=== PATIENT | male | born 1935 | race Caucasian/White ===

== ENCOUNTER 2017-09-26 09:52 | Day surgery (SDC) | payer OTHER ==
--- NOTE | 2017-09-24 14:38 | EKG ---
Test Date: 2017-09-24 Test Time: 14:20:48 Tricot Knitter: AIDE MEASUREMENT RESULTS: Intervals: Rate: 58 PA: 166 QRSD: 90 QT: 432 QTc: 424 [place]: P: 38 PA: 166 QRS: 21 T: 39 INTERPRETIVE STATEMENTS: Sinus bradycardia Otherwise normal ECG Compared to ECG 08/27/2015 21:34:07 Sinus rhythm no longer present Electronically Signed On 09-24-17 14:38:29 CDT by Axel Edmonds
--- OUTSIDE RECORDS SUMMARY | 2017-09-26 09:58 | XMS REPORT ---
:1935 Author Organization eClinicalWorks Care Team Providers Name Role Phone Dustin Anthony Provider Role Unavailable Allergies No Known Allergies Problems Problem Type Condition Code Onset Dates Condition Status Problem Insomnia G47.00 Active Problem Hypertension I10 Active Problem GERD (gastroesophageal reflux K21.9 Active disease) Problem Chronic sinusitis, unspecified J32.9 Active location Assessment Chronic sinusitis, unspecified J32.9 Active location Problem Osteopenia of neck of left femur M85.852 Active Problem Chronic tension-type headache, not G44.229 Active intractable Problem Idiopathic peripheral neuropathy G60.9 Active Problem Cholelithiasis and acute K80.00 Active cholecystitis without obstruction Problem 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 Active Problem Diverticulosis large intestine w/o K57.30 Active perforation or abscess w/o bleeding Assessment Hypertension I10 Active Assessment Insomnia G47.00 Active Assessment Osteopenia of neck of left femur M85.852 Active Assessment Allergic rhinitis, seasonal J30.2 Active Problem Lumbar disc herniation M51.26 Active Problem Abdominal aortic aneurysm I71.4 Active Problem Allergic rhinitis, seasonal J30.2 Active Problem 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 Problem Hyperlipidemia, mixed E78.2 Active Problem 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 Medications Medication Code Code Instructions Start End Status Dosage System Date Date Omeprazole [facility] 76745950072 20 MG Orally Active 1 capsule Once a day Atenolol [facility] 37373378538 25 MG Orally Active 1 tablet Once a day Ambien [facility] 18521586867 10 MG Orally Active 1 tablet Once a day at bedtime as needed Caltrate 600+D [facility] 65759679620 600-800 MG-UNIT Active 1 tablet Orally Once a with a day meal Aspir-81 [facility] 10415863967 81 MG Orally Active 1 tablet Once a day Flonase [facility] 83213413963 50 MCG/ACT Active 1 spray in Nasally Once a each day nostril Montelukast [facility] 79475632738 10 MG Orally Keli Active 1 tablet Sodium Once a day 2017 in the evening Losartan [facility] 48442590089 50 MG Orally Active 1 tablet Potassium Once a day Results No Known Results Summary Purpose eClinicalWorks Submission
--- OUTSIDE RECORDS SUMMARY | 2017-09-26 09:58 | XMS REPORT ---
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 Active Problem Diverticulosis large intestine w/o K57.30 Active perforation or abscess w/o bleeding Problem Chronic tension-type headache, not G44.229 Active intractable Problem Osteopenia of neck of left femur M85.852 Active Problem Hypertension I10 Active Problem Idiopathic peripheral neuropathy G60.9 Active Problem Cholelithiasis and acute K80.00 Active cholecystitis without obstruction Assessment Dizziness R42 Active Assessment Chronic tension-type headache, not G44.229 Active intractable Assessment Allergic rhinitis, seasonal J30.2 Active Problem Hyperlipidemia, mixed E78.2 Active Problem Lumbar disc herniation M51.26 Active Assessment Sinus headache R51 Active Problem Abdominal aortic aneurysm I71.4 Active Problem Allergic rhinitis, seasonal J30.2 Active Problem 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 Medications Medication Code Code Instructions Start End Status Dosage System Date Date Flonase [facility] 93519414712 50 MCG/ACT Active 1 spray in Nasally Once a each day nostril Aspir-81 [facility] 38679034960 81 MG Orally Active 1 tablet Once a day Losartan [facility] 65395022855 50 MG Orally Active 1 tablet Potassium Once a day Ambien [facility] 38005467549 10 MG Orally Active 1 tablet Once a day at bedtime as needed Atenolol [facility] 60095861383 25 MG Orally Active 1 tablet Once a day Montelukast [facility] 56366500716 10 MG Orally Keli Active 1 tablet Sodium Once a day 2017 in the evening Omeprazole [facility] 74815623586 20 MG Orally Active 1 capsule Once a day Caltrate 600+D [facility] 23631934615 600-800 MG-UNIT Active 1 tablet Orally Once a with a day meal Results No Known Results Summary Purpose eClinicalWorks Submission
[2017-09-26] MEDS ORDERED: PROPOFOL 200 MG/20 ML VIAL IV ONE (10:06)
[2017-09-26] MEDS ORDERED: GLYCOPYRROLATE 0.2 MG/ML SYR ONE (10:06)
[2017-09-26] MEDS ORDERED: LIDOCAINE 2% MPF 5 ML VIAL ONE (10:07)
[2017-09-26] MEDS ORDERED: Ringers Lactate 1,000 ML IV ONE ×2 (10:08→17:30)
[2017-09-26] MEDS ORDERED: FENTANYL CITR 250 MCG/5 ML ONE (10:08)
[2017-09-26] MEDS ORDERED: ROCURONIUM 50 MG/5 ML VIAL IV ONE (10:09)
[2017-09-26] MEDS ORDERED: ONDANSETRON HCL 40 MG/20 ML VIAL ONE (10:09)
[2017-09-26] MEDS: OXYMETAZOLINE HCL 0.05% 30ML NAS ONE ×3 (10:09→10:20)
[2017-09-26] MEDS ORDERED: NEOSTIGMINE 1 MG/ML -5 ML SYRINGE ONE (10:09)
[2017-09-26] MEDS ORDERED: NA CHLORIDE 0.9% 250 ML ONE (16:22)
[2017-09-26] MEDS ORDERED: LIDOCAINE 1% W/EPI 1:100,000 MDV 50 ML VIAL ONE (16:23)
[2017-09-26] MEDS ORDERED: OXYMETAZOLINE HCL 0.05% 30ML NAS ONE (16:30)
[2017-09-26] MEDS ORDERED: DEXAMETHASONE 10 MG/ML VIAL ONE (17:02)
[2017-09-26] MEDS ORDERED: KETOROLAC 30 MG/ML INJ ONE (17:03)
--- NOTE | 2017-09-26 17:04 | P.BOP ---
Preoperative diagnosis: chronic right maxillary sinusitis, severe headache Postoperative diagnosis: same Primary procedure: NE with R max antrostomy Livestock Farmers: NONE,NONE Estimated blood loss: <10ml Specimen: none Findings: mild purulence from accessory os, inflammed mucosa Anesthesia: General Complications: None Implants: none Fluids & blood products: crystalloid 200ml Transferred to: Recovery Room Condition: Good
[2017-09-26] MEDS ORDERED: NALOXONE 0.4 MG/ML VIAL ONE (17:11)
[2017-09-26] MEDS: MORPHINE 4 MG/ML SYR ONE ×2 (17:30→17:37)
[2017-09-26] MEDS ORDERED: MORPHINE 4 MG/ML SYR ONE (17:55)
[2017-09-26 18:21] VITALS: BP 167/86; TEMP 97.2; O2SAT 100
--- NOTE | 2017-09-27 03:29 | OP ---
Surgeon: Rekha Azevedo MD Preoperative Diagnosis: Chronic maxillary sinusitis, right. Postoperative Diagnosis: Chronic maxillary sinusitis, right. Procedure: Right nasal endoscopy with maxillary antrostomy. Indication For Procedure: Mr. Lackey is an 82-year-old who presented with severe headache. He was heriberto ated with multiple courses of antibiotics without improvement, and a CT scan demonstrated partial opa cification of the right maxillary sinus with the remaining paranasal sinuses within normal limits. T he risks, benefits, and alternatives to this procedure were discussed with the patient who agreed to proceed. Description Of Procedure: The patient was brought to the operating room. He was placed under genera l anesthesia via oral endotracheal tube. Scissors were used to trim the nasal hairs on the right preston e, and the nasal cavity was packed with Afrin-soaked pledgets. After time for effect, these were rem benji, and a 0-degree endoscope was used to perform a nasal endoscopy. The middle turbinate was gentl y medialized using a [place], and an Afrin-soaked pledget was packed into the middle meatus. After marya e for effect, this was removed, and the uncinate process was well visualized. There was a small acce ssory os emanating some thick white mucus. A backbiter was used to perform an uncinectomy, and a 90- degree Blakesley was used to enlarge the os and connect the natural os with the secondary os, creatin g a moderate-sized antrostomy. The sinus cavity was suctioned, and the 30- and 70-degree scopes were used to better visualize the sinus cavity. A 20-cc saline syringe was used to forcefully flush the maxillary sinus cavity. After several flushes, the cavity appeared empty without residual secretions or debris. The lining of the maxillary sinus was significantly edematous consistent with the patien t's clinical and radiographic history. Afrin-soaked pledgets were packed into the middle meatus for several minutes. After removal, there was no significant bleeding and the procedure was concluded. The patient was returned to care of Anesthesia for awakening and extubation in the operating room. Disposition: The patient will be discharged home later today in the care of his family and with [facility] standard post-sinus surgery instructions. ALFREDO/OPAL Voice ID: [id number] Report ID: [id number]
== END 2017-09-26 18:15 | disposition home or self-care (01) ==
LOC: OR 09:52
PROVIDERS: ATTEND Otolaryngology
PROC: 09DQ4ZZ Extraction of Right Maxillary Sinus, Percutaneous Endoscopic Approach (ICD-10-PCS; 2017-09-26)
PROC: 099Q8ZZ Drainage of Right Maxillary Sinus, Via Natural or Artificial Opening Endoscopic (ICD-10-PCS; principal; 2017-09-26 12:00)
DX: J32.0 Chronic maxillary sinusitis (principal); J31.0 Chronic rhinitis; R51 Headache; Z87.891 Personal history of nicotine dependence
CPT/HCPCS: 31267; 88305; 88311; 93005; J1100; J2310; J2405; J2710

== ENCOUNTER 2018-02-10 08:45 | Day surgery (SDC) | payer OTHER ==
[2018-02-09 15:17] LABS: Potassium 4.4 mmol/L (3.5-5.1)
--- NOTE | 2018-02-09 15:28 | RAD REPORT ---
EXAM DESCRIPTION: RAD - Chest Pa And Lat (2 Views) - 02/09/2018 3:16 pm CLINICAL HISTORY: surgery Chest pain. COMPARISON: Chest Single View dated 08/27/2015; CHEST SINGLE VIEW dated 05/20/2014; CHEST SINGLE VIEW dated 10/19/2012 FINDINGS: The lungs are mildly emphysematous but clear. The heart is upper limit normal size. No dis placed fractures. Tortuous thoracic aorta. IMPRESSION: Mild COPD.
[2018-02-09 15:55] LABS: Absolute Lymphocytes (CBC) 0.9 K/uL (0.7-4.9); Absolute Monocytes 0.2 K/uL (0.1-1.3); Absolute Neutrophil 5.3 K/uL (1.8-8.0); Basophils % 0.2 % (0-1.3); Eosinophils % 1.1 % (0-4.4); Hematocrit 38.3 % (39.6-49.0); Lymphocytes % 14.5 % (15.3-44.8); MCH 30.6 pg (27.0-35.0); MCV 89.9 fL (80-100); MPV 8.3 fL (7.6-11.3); Monocytes % 2.4 % (3.3-12.3); RBC Red Blood Cell Count 4.26 M/uL (4.33-5.43)
--- NOTE | 2018-02-10 06:30 | EKG ---
Test Date: 2018-02-09 Test Time: 14:50:51 Line Construction Engineer: JUSTIN MEASUREMENT RESULTS: Intervals: Rate: 69 MD: 170 QRSD: 88 QT: 390 QTc: 417 [place]: P: 42 MD: 170 QRS: 18 T: 28 INTERPRETIVE STATEMENTS: Normal sinus rhythm Normal ECG Compared to ECG 09/24/2017 14:20:48 Sinus bradycardia no longer present Electronically Signed On 02-10-18 06:29:29 BREAK OFF WORKER by Axel Edmonds
--- OUTSIDE RECORDS SUMMARY | 2018-02-10 08:48 | XMS REPORT ---
:1935 Author Organization eClinicalWorks Care Team Providers Name Role Phone Raj Dustin Provider Role Unavailable Allergies No Known Allergies Problems Problem Type Condition Code Onset Dates Condition Status Problem Insomnia G47.00 Active Problem Hypertension I10 Active Problem GERD (gastroesophageal reflux K21.9 Active disease) Problem Chronic sinusitis, unspecified J32.9 Active location Problem Osteopenia of neck of left femur M85.852 Active Problem Chronic tension-type headache, not G44.229 Active intractable Problem Idiopathic peripheral neuropathy G60.9 Active Problem Cholelithiasis and acute K80.00 Active cholecystitis without obstruction Problem 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
--- OUTSIDE RECORDS SUMMARY | 2018-02-10 08:48 | XMS REPORT ---
[...] End Status Dosage System Date Date Omeprazole [facility] 51369758691 20 MG Orally Active 1 capsule Once a day Atenolol [facility] 46726846818 25 MG Orally Active 1 tablet Once a day Ambien [facility] 02884926922 10 MG Orally Active 1 tablet Once a day at bedtime as needed Caltrate 600+D [facility] 52125841006 600-800 MG-UNIT Active 1 tablet Orally Once a with a day meal Aspir-[address] [facility] 22762743724 81 MG Orally Active 1 tablet Once a day Flonase [facility] 72565533659 50 MCG/ACT Active 1 spray in Nasally Once a each day nostril Montelukast [facility] 84024666334 10 MG Orally Keli Active 1 tablet Sodium Once a day 2017 in the evening Losartan [facility] 71741498500 50 MG Orally Active 1 tablet Potassium Once a day Results No Known Results Summary Purpose eClinicalWorks Submission
--- OUTSIDE RECORDS SUMMARY | 2018-02-10 08:48 | XMS REPORT ---
:1935 Author Organization eClinicalWorks Care Team Providers Name Role Phone Dustin Anthony Provider Role Unavailable Allergies No Known Allergies Problems Problem Type Condition Code Onset Dates Condition Status Problem Insomnia G47.00 Active Problem Hypertension I10 Active Problem GERD (gastroesophageal reflux K21.9 Active disease) Problem Chronic sinusitis, unspecified J32.9 Active location Assessment Osteopenia of neck of left femur M85.852 Active Problem Osteopenia of neck of left femur M85.852 Active Assessment Chronic sinusitis, unspecified J32.9 Active location Problem Chronic tension-type headache, not G44.229 Active intractable Problem Idiopathic peripheral neuropathy G60.9 Active Problem Cholelithiasis and acute K80.00 Active cholecystitis without obstruction Problem 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 Active Problem Diverticulosis large intestine w/o K57.30 Active perforation or abscess w/o bleeding Assessment Insomnia G47.00 Active Assessment Allergic rhinitis, seasonal J30.2 Active Assessment Hypertension I10 Active Problem Lumbar disc herniation M51.26 Active Problem Abdominal aortic aneurysm I71.4 Active Problem Allergic rhinitis, seasonal J30.2 Active Problem 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 10232122637 25 MG Orally Active 1 tablet Once a day Omeprazole [facility] 97457072046 20 MG Orally Active 1 capsule Once a day Flonase [facility] 10419677354 50 MCG/ACT Active 1 spray in Nasally Once a each day nostril Caltrate 600+D [facility] 42942804324 600-800 MG-UNIT Active 1 tablet Orally Once a with a day meal Losartan [facility] 73679349979 50 MG Orally Active 1 tablet Potassium Once a day Montelukast [facility] 55883586022 10 MG Orally Keli Active 1 tablet Sodium Once a day 2017 in the evening Ambien [facility] 73562109631 10 MG Orally Active 1 tablet Once a day at bedtime as needed [facility]-[address] [facility] 65436262318 81 MG Orally Active 1 tablet Once a day Results No Known Results Summary Purpose eClinicalWorks Submission
--- OUTSIDE RECORDS SUMMARY | 2018-02-10 08:48 | XMS REPORT ---
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 Problem GERD (gastroesophageal reflux [...] End Status Dosage System Date Date Flonase [facility] 81599624012 50 MCG/ACT Active 1 spray in Nasally Once a each day nostril Aspir-81 [facility] 15244447847 81 MG Orally Active 1 tablet Once a day Losartan [facility] 90445079994 50 MG Orally Active 1 tablet Potassium Once a day Ambien [facility] 38750529233 10 MG Orally Active 1 tablet Once a day at bedtime as needed Atenolol [facility] 89457056172 25 MG Orally Active 1 tablet Once a day Montelukast [facility] 90331859572 10 MG Orally Keli Active 1 tablet Sodium Once a day 2017 in the evening Omeprazole [facility] 57458974278 20 MG Orally Active 1 capsule Once a day Caltrate 600+D [facility] 12136238249 600-800 MG-UNIT Active 1 tablet Orally Once a with a day meal Results No Known Results Summary Purpose eClinicalWorks Submission
[2018-02-10] MEDS ORDERED: Ringers Lactate 1,000 ML IV ONE (09:03)
[2018-02-10] MEDS ORDERED: LIDOCAINE 1% MPF 30 ML VIAL ONE (09:59)
[2018-02-10] MEDS ORDERED: FENTANYL CITR 100 MCG/2 ML ONE (10:22)
[2018-02-10] MEDS ORDERED: PROPOFOL 200 MG/20 ML VIAL IV ONE (10:22)
[2018-02-10] MEDS ORDERED: LIDOCAINE 2% MPF 5 ML VIAL ONE (10:23)
[2018-02-10] MEDS ORDERED: MIDAZOLAM HCL 2 MG/2 ML INJ ONE (10:23)
[2018-02-10] MEDS: CEFAZOLIN/SWI 1gm 1 GM/10 ML SYR ONE ×2 (10:32→10:35)
[2018-02-10] MEDS ORDERED: GLYCOPYRROLATE 0.2 MG/ML SYR ONE (10:49)
[2018-02-10] MEDS ORDERED: EPHEDRINE SULF 50 MG/10 ML SYR ONE (10:59)
[2018-02-10] MEDS ORDERED: KETOROLAC 30 MG/ML INJ ONE (11:05)
[2018-02-10] MEDS ORDERED: Mastisol Adhesive Liq ONE (11:11)
[2018-02-10 11:18] VITALS: O2SAT 100
[2018-02-10 12:03] VITALS: BP 141/87; TEMP 97.2
--- NOTE | 2018-02-10 12:07 | OP ---
Date of Procedure: 02/10/2018 Surgeon: Guillermo Mendoza MD Gas And Oil Servicer: AUDREY Gal[place]. Preoperative Diagnoses: Left vision change. Rule out temporal arteritis, elevated sedimentation rat e and C-reactive protein. Postoperative Diagnoses: Left vision change. Rule out temporal arteritis, elevated sedimentation ra te and C-reactive protein. Procedure: Left temporal artery biopsy, Doppler guided. Estimated Blood Loss: Minimal. Specimen: Left temporal artery. Findings: As above. Anesthesia: General. Complications: None. Disposition: The patient tolerated the procedure in stable condition and taken to Recovery in good g eneral condition. Procedure In Detail: The patient was brought to the OR and placed in the supine position. General a nesthesia was begun. The patient was prepped and draped in the usual sterile fashion. Doppler devic e used to identify the margins of temporal artery. Marcaine 0.5% was infiltrated locally. A 15-blad e was used to make a 4 cm incision above the left ear in the hairline. Subcutaneous tissue divided. The artery identified. Proximal and distal control obtained. Both ends divided. 4-0 silk used to tie up both ends. A 4 cm segment of the temporal artery branch sent to Pathology. Wound irrigated. Bleeding controlled with cautery. Then 4-0 chromic used to approximate the subcutaneous tissue and close the skin. Sterile dressing was applied. The patient was awakened and taken to Recovery in good general condition. /MODL Voice ID: [id number] Report ID: [id number]
--- NOTE | 2018-02-10 12:13 | DS ---
Discharge Note: The patient will go to Day Surgery and home when stable. Disposition: Home. Condition: Stable. Discharge Instructions: Resume home medications and diet. Activity as tolerated. No heavy lifting. Remove outer dressing in 2 days. Shower. Keep wound clean and dry. Keep Steri-Strips on at all t imes. Followup in my office in 2 weeks. Call for appointment. Follow with Dr. Harris in 1 week. SHANNON/OPAL Voice ID: [id number] Report ID: [id number]
== END 2018-02-10 12:35 | disposition home or self-care (01) ==
LOC: OR 08:45
PROVIDERS: ATTEND Surgery
PROC: 03BT0ZX Excision of Left Temporal Artery, Open Approach, Diagnostic (ICD-10-PCS; principal; 2018-02-10 10:00)
DX: H53.9 Unspecified visual disturbance (principal); I70.8 Atherosclerosis of other arteries; R70.0 Elevated erythrocyte sedimentation rate; I10 Essential (primary) hypertension; K21.9 Gastro-esophageal reflux disease without esophagitis; Z82.3 Family history of stroke
CPT/HCPCS: 36415; 37609; 71046; 80048; 85025; 88305; 93005; J0690; J2250; J2704; J3010

== ENCOUNTER 2018-02-13 05:10 | Emergency (ER) | payer OTHER ==
--- OUTSIDE RECORDS SUMMARY | 2018-02-13 05:12 | XMS REPORT ---
[...] End Status Dosage System Date Date Omeprazole [facility] 91573308962 20 MG Orally Active 1 capsule Once a day Atenolol [facility] 93375172140 25 MG Orally Active 1 tablet Once a day Ambien [facility] 45844379053 10 MG Orally Active 1 tablet Once a day at bedtime as needed Caltrate 600+D [facility] 22466384719 600-800 MG-UNIT Active 1 tablet Orally Once a with a day meal Aspir-81 [facility] 04516301419 81 MG Orally Active 1 tablet Once a day Flonase [facility] 07533036618 50 MCG/ACT Active 1 spray in Nasally Once a each day nostril Montelukast [facility] 35109455569 10 MG Orally Keli Active 1 tablet Sodium Once a day 2017 in the evening Losartan [facility] 95277086968 50 MG Orally Active 1 tablet Potassium Once a day Results No Known Results Summary Purpose eClinicalWorks Submission
--- OUTSIDE RECORDS SUMMARY | 2018-02-13 05:12 | XMS REPORT ---
[...] Status Dosage System Date Date Atenolol [facility] 93480115363 25 MG Orally Active 1 tablet Once a day Omeprazole [facility] 95300962528 20 MG Orally Active 1 capsule Once a day Flonase [facility] 92692495490 50 MCG/ACT Active 1 spray in Nasally Once a each day nostril Caltrate 600+D [facility] 37914148528 600-800 MG-UNIT Active 1 tablet Orally Once a with a day meal Losartan [facility] 48401545037 50 MG Orally Active 1 tablet Potassium Once a day Montelukast [facility] 75527640169 10 MG Orally Keli Active 1 tablet Sodium Once a day 2017 in the evening Ambien [facility] 14164501349 10 MG Orally Active 1 tablet Once a day at bedtime as needed [facility]-81 [facility] 76775039750 81 MG Orally Active 1 tablet Once a day Results No Known Results Summary Purpose eClinicalWorks Submission
--- OUTSIDE RECORDS SUMMARY | 2018-02-13 05:12 | XMS REPORT ---
[...] End Status Dosage System Date Date Flonase [facility] 31616705232 50 MCG/ACT Active 1 spray in Nasally Once a each day nostril Aspir-81 [facility] 76347570994 81 MG Orally Active 1 tablet Once a day Losartan [facility] 81348890527 50 MG Orally Active 1 tablet Potassium Once a day Ambien [facility] 44113571764 10 MG Orally Active 1 tablet Once a day at bedtime as needed Atenolol [facility] 91246583793 25 MG Orally Active 1 tablet Once a day Montelukast [facility] 29332825085 10 MG Orally Keli Active 1 tablet Sodium Once a day 2017 in the evening Omeprazole [facility] 31815188167 20 MG Orally Active 1 capsule Once a day Caltrate 600+D [facility] 53753845191 600-800 MG-UNIT Active 1 tablet Orally Once a with a day meal Results No Known Results Summary Purpose eClinicalWorks Submission
[2018-02-13] MEDS ORDERED: ONDANSETRON 4 MG/2 ML VIAL ONE (05:40)
[2018-02-13] MEDS ORDERED: FENTANYL CITR 100 MCG/2 ML ONE ×2 (05:40→06:31)
[2018-02-13 05:53] LABS: Absolute Lymphocytes (CBC) 1.2 K/uL (0.7-4.9); Absolute Monocytes 0.9 K/uL (0.1-1.3); Basophils % 0.3 % (0-1.3); Hematocrit 42.7 % (39.6-49.0); Lymphocytes % 11.2 % (15.3-44.8); MCH 30.8 pg (27.0-35.0); MCV 90.3 fL (80-100); MPV 8.3 fL (7.6-11.3); Monocytes % 7.8 % (3.3-12.3); RBC Red Blood Cell Count 4.73 M/uL (4.33-5.43)
[2018-02-13 06:10] LABS: Bilirubin Direct 0.2 mg/dL (0-0.2); Bilirubin Total 0.4 mg/dL (0.2-1.0); Potassium 3.8 mmol/L (3.5-5.1)
[2018-02-13 06:52] LABS: Platelet Estimate ADEQ; Platelets, Giant FEW; Urine White Blood Cell Casts OK
[2018-02-13 06:53] LABS: Blood Morphology Comment NOT SEEN (NOT SEEN)
[2018-02-13] MEDS ORDERED: HYDROMORPHONE HCL 1 MG/ML INJ ONE (06:58)
--- NOTE | 2018-02-13 07:19 | ER ---
Nurse's Notes [facility] Name: Anival Lackey Age: 82 yrs Sex: Male : 1935 Arrival Date: 02/13/2018 Time: 05:11 Bed 5 Private MD: Diagnosis: Left UVJ stone with hydronephrosis;Cholelithiasis;Unspecified kidney failure-insuffiocency Presentation: 02/13 05:24 Presenting complaint: Patient states: he woke up around 0200 with left flank pain bb radiating to abdomen denies urinary difficulty states he also has an abdominal aneurysm. Pt was recently here for temporal biopsy a few days ago. Transition of care: patient was not received from another setting of care. Onset of symptoms was February 13, 2018. Risk Assessment: Do you want to hurt yourself or someone else? Patient reports no desire to harm self or others. Initial Sepsis Screen: Does the patient meet any 2 criteria? No. Patient's initial sepsis screen is negative. Does the patient have a suspected source of infection? No. Patient's initial sepsis screen is negative. Care prior to arrival: pt took an extra atenolol about 2 hours ago for his blood pressure which was over 200 systolic. 05:24 Method Of Arrival: Ambulatory bb 05:24 Acuity: DANIEL 2 bb Historical: - Allergies: 05:29 No Known Allergies; bb - Home Meds: 05:29 losartan 50 mg oral tab 1 tab once daily [Active]; atenolol 25 mg Oral tab 1 tab once bb daily [Active]; omeprazole 20 mg Oral cpDR 1 cap once daily [Active]; simvastatin 40 mg Oral tab 1 tab once daily [Active]; montelukast 10 mg oral tab 1 tab once daily [Active]; - PMHx: 05:29 Hypertension; GERD; allergies; bb 05:30 abdominal aneurysm; bb - PSHx: 05:29 tumor removed from abdomen; temporal biopsy; Hernia repair; right wrist fusion; bb - Immunization history:: Adult Immunizations up to date. - Social history:: Smoking status: Patient/guardian denies using tobacco, Patient uses alcohol, occasionally. Patient/guardian denies using street drugs. - Ebola Screening: : No symptoms or risks identified at this time. - Family history:: not pertinent. - Hospitalizations: : No recent hospitalization is reported. Screenin:50 Abuse screen: Denies threats or abuse. Denies injuries from another. Nutritional tl1 screening: No deficits noted. Tuberculosis screening: No symptoms or risk factors identified. Fall Risk IV access (20 points). Assessment: 05:41 General: Appears in no apparent distress. Behavior is calm, cooperative, appropriate tl1 for age. Pain: Complains of pain in left flank Pain radiates to left lower quadrant Pain currently is 9 out of 10 on a pain scale. Quality of pain is described as sharp, stabbing. Neuro: No deficits noted. Cardiovascular: Denies chest pain. Respiratory: Airway is patent Trachea midline Respiratory effort is even, unlabored, Breath sounds are clear bilaterally. GI: Bowel sounds present X 4 quads. Abd is soft and non tender X 4 quads. Reports nausea, vomiting. : No signs and/or symptoms were reported regarding the genitourinary system. EENT: No signs and/or symptoms were reported regarding the EENT system. Derm: No signs and/or symptoms reported regarding the dermatologic system. Vital Signs: 05:29 BP 201 / 103; Pulse 72; Resp 18 S; Temp 97.6(O); Pulse Ox 99% on R/A; Weight 72.12 kg bb (R); Height 5 ft. 11 in. (180.34 cm) (R); Pain 9/10; 05:40 BP 188 / 96; Pulse 75; Resp 20; Pulse Ox 94% on R/A; tl1 05:49 BP 169 / 96; Pulse 61; Resp 15; Pulse Ox 96% on R/A; Pain 2/10; tl1 06:27 BP 176 / 89; Pulse 58; Resp 18; Pulse Ox 96% ; Pain 6/10; tl1 06:59 BP 181 / 90; Pulse 80; Resp 17; Pulse Ox 96% ; Pain 2/10; tl1 07:40 BP 170 / 82; Pulse 80; Resp 17; Temp 97.7; Pulse Ox 98% on R/A; Pain 0/10; sg 05:29 Body Mass Index 22.18 (72.12 kg, 180.34 cm) bb ED Course: 05:11 Patient arrived in ED. es 05:22 Nikunj Delgadillo MD is Attending Physician. wa 05:27 Triage completed. bb 05:28 No provider procedures requiring assistance completed. Inserted saline lock: 20 gauge tl1 in right antecubital area, using aseptic technique. Blood collected. 05:29 Arm band placed on Patient placed in an exam room, on a stretcher, on pvc monitor, bb on pulse oximetry. 05:37 Concha Davidson, RN is Primary Nurse. tl1 06:40 CT Abd/Pelvis - W/Contrast In Process Unspecified. EDMS 06:41 CT completed. Patient tolerated procedure well. Patient moved to CT via stretcher. Patient moved back from CT. 07:18 Ruth Santiago MD is Referral Physician. wa 07:32 Attending Physician role handed off by Nikunj Delgadillo MD wendy 07:32 Manuel Washington MD is Attending Physician. wendy 07:42 Artemio Mendez MD is Referral Physician. wendy 07:47 IV discontinued, intact, bleeding controlled, No redness/swelling at site. Pressure sg dressing applied. 07:50 Patient has correct armband on for positive identification. Bed in low position. Call sg light in reach. Side rails up X2. Administered Medications: 05:38 Drug: fentaNYL (PF) 50 mcg Route: IVP; Infused Over: 2 mins; Site: right antecubital; tl1 05:50 Follow up: Response: No adverse reaction; Marked relief of symptoms; Pain is decreased tl1 05:39 Drug: Zofran 4 mg Route: IVP; Infused Over: 2 mins; Site: right antecubital; tl1 05:50 Follow up: Response: No adverse reaction; Marked relief of symptoms; Nausea is decreasedtl1 06:25 Drug: fentaNYL (PF) 50 mcg Route: IVP; Infused Over: 2 mins; Site: right antecubital; tl1 06:52 Follow up: Response: No adverse reaction; No change in condition; Pain is increased tl1 06:52 Drug: Dilaudid 1 mg Route: IVP; Infused Over: 2 mins; Site: right antecubital; tl1 06:59 Follow up: Response: No adverse reaction; Marked relief of symptoms; Pain is decreased tl1 07:50 Drug: Flomax 0.4 mg Route: PO; sg 07:50 Drug: Cipro 500 mg Route: PO; sg Outcome: 07:19 Discharge ordered by . wa 07:50 Discharged to home ambulatory, with family. sg 07:50 Condition: good 07:50 Discharge instructions given to patient, Instructed on discharge instructions, follow up and referral plans. medication usage, safety practices, Demonstrated understanding of instructions, follow-up care, medications, Prescriptions given X 4. 07:55 Patient left the ED. sg Signatures: Dispatcher [employer] EDMauricio Koehler, RN Manuel Ku MD MD cha Salyer, Edna es Hagler, Ervin eh Ballard, Brenda, RN RN bb Concha Davidson RN RN tl1 Nikunj Delgadillo MD MD wa
--- NOTE | 2018-02-13 07:20 | EDPHYS ---
Physician Documentation [facility] Name: Anival Lackey Age: 82 yrs Sex: Male : 1935 Arrival Date: 02/13/2018 Time: 05:11 Bed 5 Private MD: ED Physician Manuel Washington HPI: 02/13 06:35 This 82 yrs old Male presents to ER via Ambulatory with complaints of High wa Blood Pressure, Flank Pain. 06:36 The patient complains of pain in the left flank. The pain does not radiate. Onset: The wa symptoms/episode began/occurred 4 hour(s) ago. Modifying factors: The symptoms are alleviated by nothing. the symptoms are aggravated by nothing. Associated signs and symptoms: Pertinent positives: vomiting, Pertinent negatives: dysuria, fever, headache. Severity of pain: At its worst the pain was moderate in the emergency department the pain is actually worse. The patient has not experienced similar symptoms in the past. The patient has not recently seen a physician. Historical: - Allergies: 05:29 No Known Allergies; bb - Home Meds: 05:29 losartan 50 mg oral tab 1 tab once daily [Active]; atenolol 25 mg Oral tab 1 tab once bb daily [Active]; omeprazole 20 mg Oral cpDR 1 cap once daily [Active]; simvastatin 40 mg Oral tab 1 tab once daily [Active]; montelukast 10 mg oral tab 1 tab once daily [Active]; - PMHx: 05:29 Hypertension; GERD; allergies; bb 05:30 abdominal aneurysm; bb - PSHx: 05:29 tumor removed from abdomen; temporal biopsy; Hernia repair; right wrist fusion; bb - Immunization history:: Adult Immunizations up to date. - Social history:: Smoking status: Patient/guardian denies using tobacco, Patient uses alcohol, occasionally. Patient/guardian denies using street drugs. - Ebola Screening: : No symptoms or risks identified at this time. - Family history:: not pertinent. - Hospitalizations: : No recent hospitalization is reported. ROS: 06:38 Constitutional: Negative for fever, chills, and weight loss, Eyes: Negative for injury, wa pain, redness, and discharge, ENT: Negative for injury, pain, and discharge, Neck: Negative for injury, pain, and swelling, Cardiovascular: Negative for chest pain, palpitations, and edema, Respiratory: Negative for shortness of breath, cough, wheezing, and pleuritic chest pain, Back: Negative for injury and pain, : Negative for injury, bleeding, discharge, and swelling, MS/Extremity: Negative for injury and deformity, Skin: Negative for injury, rash, and discoloration, Neuro: Negative for headache, weakness, numbness, tingling, and seizure. 06:38 Abdomen/GI: Positive for vomiting, L flank pain, Negative for diarrhea, constipation. 06:38 All other systems are negative. Exam: 06:38 Constitutional: This is a well developed, well nourished patient who is awake, alert, wa and in no acute distress. Head/Face: Normocephalic, atraumatic. Eyes: Pupils equal round and reactive to light, extra-ocular motions intact. Lids and lashes normal. Conjunctiva and sclera are non-icteric and not injected. Cornea within normal limits. Periorbital areas with no swelling, redness, or edema. ENT: Nares patent. No nasal discharge, no septal abnormalities noted. Tympanic membranes are normal and external auditory canals are clear. Oropharynx with no redness, swelling, or masses, exudates, or evidence of obstruction, uvula midline. Mucous membranes moist. Neck: Trachea midline, no thyromegaly or masses palpated, and no cervical lymphadenopathy. Supple, full range of motion without nuchal rigidity, or vertebral point tenderness. No Meningismus. Chest/axilla: Normal chest wall appearance and motion. Nontender with no deformity. No lesions are appreciated. Cardiovascular: Regular rate and rhythm with a normal S1 and S2. No gallops, murmurs, or rubs. Normal PMI, no JVD. No pulse deficits. Respiratory: Lungs have equal breath sounds bilaterally, clear to auscultation and percussion. No rales, rhonchi or wheezes noted. No increased work of breathing, no retractions or nasal flaring. Back: No spinal tenderness. No costovertebral tenderness. Full range of motion. Skin: Warm, dry with normal turgor. Normal color with no rashes, no lesions, and no evidence of cellulitis. MS/ Extremity: Pulses equal, no cyanosis. Neurovascular intact. Full, normal range of motion. Neuro: Awake and alert, GCS 15, oriented to person, place, time, and situation. Cranial nerves II-XII grossly intact. Motor strength 5/5 in all extremities. Sensory grossly intact. Cerebellar exam normal. Normal gait. Psych: Awake, alert, with orientation to person, place and time. Behavior, mood, and affect are within normal limits. 06:38 Abdomen/GI: Inspection: abdomen appears normal, Bowel sounds: normal, in all quadrants, Palpation: soft, in all quadrants, nontender, in all quadrants. Vital Signs: 05:29 BP 201 / 103; Pulse 72; Resp 18 S; Temp 97.6(O); Pulse Ox 99% on R/A; Weight 72.12 kg bb (R); Height 5 ft. 11 in. (180.34 cm) (R); Pain 9/10; 05:40 BP 188 / 96; Pulse 75; Resp 20; Pulse Ox 94% on R/A; tl1 05:49 BP 169 / 96; Pulse 61; Resp 15; Pulse Ox 96% on R/A; Pain 2/10; tl1 06:27 BP 176 / 89; Pulse 58; Resp 18; Pulse Ox 96% ; Pain 6/10; tl1 06:59 BP 181 / 90; Pulse 80; Resp 17; Pulse Ox 96% ; Pain 2/10; tl1 07:40 BP 170 / 82; Pulse 80; Resp 17; Temp 97.7; Pulse Ox 98% on R/A; Pain 0/10; sg 05:29 Body Mass Index 22.18 (72.12 kg, 180.34 cm) MDM: 05:22 Patient medically screened. nj 06:39 Differential diagnosis: nephrolithiasis, pyelonephritis, UTI, diverticulitis, ruptured nj AAA, dissecting AAA. 07:16 Data reviewed: vital signs, nurses notes. Test interpretation: by ED physician or nj midlevel provider: moderate L hydro. 3.6 mm stone at L UVJ. multiple kidney cysts. . Response to treatment: the patient's symptoms have markedly improved after treatment. 02/13 05:29 Order name: Basic Metabolic Panel; Complete Time: 07:10 nj 02/13 05:29 Order name: CBC with Diff; Complete Time: 07:10 nj 02/13 05:29 Order name: Hepatic Function; Complete Time: 07:10 nj 02/13 05:29 Order name: Lipase; Complete Time: 07:10 nj 02/13 05:54 Order name: CBC Smear Scan; Complete Time: 07:09 EDMS 02/13 07:13 Order name: Urine Microscopic Only nj 02/13 05:30 Order name: CT Abd/Pelvis - W/Contrast nj 02/13 07:34 Order name: Urine Dipstick--Ancillary (enter results) 2 02/13 05:29 Order name: IV Saline Lock; Complete Time: 05:30 nj 02/13 05:29 Order name: Labs collected and sent; Complete Time: 05:31 nj 02/13 05:31 Order name: Cardiac monitoring; Complete Time: 05:31 nj 02/13 07:13 Order name: Urine Dipstick-Ancillary (obtain specimen); Complete Time: 07:50 nj Administered Medications: 05:38 Drug: fentaNYL (PF) 50 mcg Route: IVP; Infused Over: 2 mins; Site: right antecubital; tl1 05:50 Follow up: Response: No adverse reaction; Marked relief of symptoms; Pain is decreased tl1 05:39 Drug: Zofran 4 mg Route: IVP; Infused Over: 2 mins; Site: right antecubital; tl1 05:50 Follow up: Response: No adverse reaction; Marked relief of symptoms; Nausea is decreasedtl1 06:25 Drug: fentaNYL (PF) 50 mcg Route: IVP; Infused Over: 2 mins; Site: right antecubital; tl1 06:52 Follow up: Response: No adverse reaction; No change in condition; Pain is increased tl1 06:52 Drug: Dilaudid 1 mg Route: IVP; Infused Over: 2 mins; Site: right antecubital; tl1 06:59 Follow up: Response: No adverse reaction; Marked relief of symptoms; Pain is decreased tl1 07:50 Drug: Flomax 0.4 mg Route: PO; sg 07:50 Drug: Cipro 500 mg Route: PO; sg Disposition: 02/13/18 07:19 Discharged to Home. Impression: Left UVJ stone with hydronephrosis, Cholelithiasis, Unspecified kidney failure - insuffiocency. - Condition is Stable. - Discharge Instructions: Cholelithiasis, Cholelithiasis, [id number], Chronic Kidney Disease, Adult, [id number]. - Prescriptions for Zofran 4 mg Oral Tablet - take 1 tablet by ORAL route every 12 hours As needed; 20 tablet. Tylenol- Codeine #3 300-30 mg Oral Tablet - take 2 tablet by ORAL route every 6 hours As needed; 30 tablet. Cipro 250 mg Oral Tablet - take 1 tablet by ORAL route every 12 hours; 14 tablet. Flomax 0.4 mg Oral Capsule, Sust. Release 24 hr - take 1 capsule by ORAL route once daily 1/2 hour following the same meal each day; 20 capsule. - Medication Reconciliation Form, Thank You Letter, Antibiotic Education, Prescription Opioid Use form. - Follow up: Ruth Santiago MD; When: 2 - 3 days; Reason: Re-evaluation by your physician. Follow up: Artemio Mendez MD; When: 2 - 3 days; Reason: Recheck today's complaints, Re-evaluation by your physician. - Problem is new. - Symptoms have improved. - Notes: take medication for pain as discussed. follow up with the urologist as discussed for further care. return here immediately for worsening pain and or vomiting Signatures: Dispatcher [employer] EDMS Mauricio Silvestre RN RN sg Manuel Washington MD MD cha Ballard, Brenda, RN RN bb Concha Davidson RN RN tl1 Nikunj Delgadillo MD MD wa Corrections: (The following items were deleted from the chart) 07:42 07:19 02/13/2018 07:19 Discharged to Home. Impression: Left UVJ stone with wendy hydronephrosis. Condition is Stable. Forms are Medication Reconciliation Form, Thank You Letter, Antibiotic Education, Prescription Opioid Use. Follow up: Ruth Santiago; When: 2 - 3 days; Reason: Re-evaluation by your physician. Problem is new. Symptoms have improved. nj 07:42 07:42 02/13/2018 07:19 Discharged to Home. Impression: Left UVJ stone with wendy hydronephrosis; Cholelithiasis; Unspecified kidney failure - insuffiocency. Condition is Stable. Prescriptions for Zofran 4 mg Oral Tablet - take 1 tablet by ORAL route every 12 hours As needed; 20 tablet, Tylenol-Codeine #3 300-30 mg Oral Tablet - take 2 tablet by ORAL route every 6 hours As needed; 30 tablet. and Forms are Medication Reconciliation Form, Thank You Letter, Antibiotic Education, Prescription Opioid Use. Follow up: Ruth Santiago; When: 2 - 3 days; Reason: Re-evaluation by your physician. Problem is new. Symptoms have improved. wendy 07:55 07:42 02/13/2018 07:19 Discharged to Home. Impression: Left UVJ stone with sg hydronephrosis; Cholelithiasis; Unspecified kidney failure - insuffiocency. Condition is Stable. Prescriptions for Zofran 4 mg Oral Tablet - take 1 tablet by ORAL route every 12 hours As needed; 20 tablet, Tylenol-Codeine #3 300-30 mg Oral Tablet - take 2 tablet by ORAL route every 6 hours As needed; 30 tablet. and Forms are Medication Reconciliation Form, Thank You Letter, Antibiotic Education, Prescription Opioid Use. Follow up: Ruth Santiago; When: 2 - 3 days; Reason: Re-evaluation by your physician. Follow up: Artemio Mendez; When: 2 - 3 days; Reason: Recheck today's complaints, Re-evaluation by your physician. Problem is new. Symptoms have improved. wendy
[2018-02-13] MEDS ORDERED: TAMSULOSIN 0.4 MG SR CAP ONE (07:48)
[2018-02-13] MEDS ORDERED: CIPROFLOXACIN HCL 500 MG TAB ONE (07:51)
[2018-02-13 07:52] LABS: Urine Bacteria NONE SEEN /HPF (NONE SEEN); Urine Culture Reflex Order NOT NEEDED; Urine RBC <5 /HPF (NONE SEEN)
[2018-02-13 07:53] LABS: Urine Blood TRACE (NEG); Urine Glucose NEGATIVE (NEG); Urine Protein 1+ (NEG); Urine Specific Gravity 1.015 (1.005-1.030)
[2018-02-13 08:14] VITALS: BP 170/82; TEMP 97.7; O2SAT 98
--- NOTE | 2018-02-13 08:43 | RAD REPORT ---
EXAM DESCRIPTION: CT - Abdomen Pelvis W Contrast - 02/13/2018 7:09 am CLINICAL HISTORY: Abdominal pain/left flank pain. COMPARISON: none. TECHNIQUE: Computed axial tomography of the abdomen pelvis was obtained. 100 cc Isovue-300 was admin istered intravenously. Oral contrast was not requested which limits evaluation of bowel. All CT scans are performed using dose optimization technique as appropriate and may include automated exposure control or mA/KV adjustment according to patient size. FINDINGS: Moderate left hydronephrosis is present. Several small nonobstructing left renal calculi a re seen. 6 centimeter cyst extends off of the left kidney. A parapelvic cyst measures 5 centimeters. A 1 millimeter calculus is present within the distal left ureter. A 4 millimeter calculus is present at the left UVJ Hounsfield unit 858. Stranding is present adjacent to the left kidney and left ureter 3 centimeter right renal cyst is present. Renal cortical thinning likely secondary to prior inflammat ion. Diverticula stem from the colon without evidence of diverticulitis. 3.5 centimeter infrarenal abdominal aortic aneurysm. Liver, spleen, pancreas and adrenals are unremarkable. A gallstone is present without gallbladder wall thickening Prostate gland mildly enlarged IMPRESSION: 4 millimeter calculus left UVJ with moderate left hydronephrosis
== END 2018-02-13 07:55 | disposition home or self-care (01) ==
LOC: ER 05:10
DX: K80.20 Calculus of gallbladder without cholecystitis without obstruction (principal); N13.2 Hydronephrosis with renal and ureteral calculous obstruction; N19 Unspecified kidney failure; I10 Essential (primary) hypertension; K21.9 Gastro-esophageal reflux disease without esophagitis
CPT/HCPCS: 36415; 74177; 80048; 80076; 83690; 85025; 96374; 96375; 99284; J1170; J2405; J3010 ×2; Q9967; 81003; 81015

== ENCOUNTER 2019-01-25 10:51 | Emergency (ER) | payer OTHER ==
[2019-01-25] MEDS ORDERED: KETOROLAC 30 MG/ML INJ ONE (11:23)
[2019-01-25] MEDS ORDERED: ACETAMINOPHEN 500 MG TAB ONE (11:48)
[2019-01-25 11:58] LABS: Absolute Lymphocytes (CBC) 2.1 K/uL (0.7-4.9); Hematocrit 38.3 % (39.6-49.0); Lymphocytes % 37.5 % (15.3-44.8); MPV 7.8 fL (7.6-11.3); RBC Red Blood Cell Count 4.24 M/uL (4.33-5.43)
[2019-01-25 12:20] LABS: Albumin 3.6 g/dL (3.4-5.0); Bilirubin Direct 0.1 mg/dL (0-0.2); Bilirubin Total 0.5 mg/dL (0.2-1.0); Protein, Total 7.1 g/dL (6.4-8.2)
[2019-01-25 12:21] LABS: Potassium 4.5 mmol/L (3.5-5.1)
--- NOTE | 2019-01-25 13:13 | RAD REPORT ---
EXAM DESCRIPTION: CT - Chest Abdomen Pelvis W Cont - 01/25/2019 12:47 pm CLINICAL HISTORY: Right-sided chest pain, right-sided abdominal pain COMPARISON: Two view chest same date TECHNIQUE: Following dynamic enhancement using 100 milliliters nonionic IV contrast, axial imaging o f the chest, abdomen and pelvis was performed. Biphasic technique was utilized through the abdomen. Oral contrast was administered. All CT scans are performed using dose optimization technique as appropriate and may include automated exposure control or mA/KV adjustment according to patient size. FINDINGS: Lungs are clear of mass and infiltrate. No pleural effusion, pleural thickening or pneumot horax. No significant aortic or pulmonary arterial tree finding. Mediastinal and hilar regions show n o mass or abnormal lymphadenopathy. No chest wall mass or axillary lymphadenopathy. No displaced or n ondisplaced rib fractures seen. Bony degenerative changes are present. The liver, spleen and pancreas show no suspicious findings. An 8 millimeter gallstone is present near the neck. There is probably additional punctate gallstones present as well. No gallbladder wall thic kening or edema seen. No biliary tree dilatation. Symmetric renal function is seen with no mass or hydronephrosis. Areas of cortical thinning are prese nt. Bilateral renal cysts are present including 4.8 centimeter cyst in the central left kidney and a 6.1 centimeter cyst posterior upper pole left kidney. No solid mass seen. Infrarenal abdominal aortic aneurysm is present 3.7 cm AP x 3.9 cm TR. No centrally displaced calcifi cation. No dilated bowel loops or focal bowel wall thickening. Prominent sigmoid diverticulosis without diver ticulitis. The appendix is normal. No active GI process seen. Hip and lumbar spine degenerative changes are present. No acute bone finding. IMPRESSION: CT chest imaging shows no mass, infiltrate, rib fracture or other abnormality to explain right-sided chest symptoms. Patient has cholelithiasis but no additional finding to indicate acute gallbladder or biliary tree pr ocess. Diverticulosis without diverticulitis. No acute GI process seen. Abdominal aortic infrarenal aneurysm 3.7 cm x 3.9 cm. No acute finding.
--- NOTE | 2019-01-25 13:29 | EDPHYS ---
Physician Documentation [facility] Name: Anival Lackey Age: 83 yrs Sex: Male : 1935 Arrival Date: 01/25/2019 Time: 10:54 Bed 16 Private MD: Dustin Anthony ED Physician Nikunj Delgadillo HPI: 01/25 11:20 This 83 yrs old Male presents to ER via Ambulatory with complaints of wa Abdominal Pain. 11:20 The patient presents with abdominal pain in the right upper quadrant. Onset: The wa symptoms/episode began/occurred 4 day(s) ago. The symptoms do not radiate. Associated signs and symptoms: Pertinent negatives: nausea and vomiting, diarrhea, dysuria, fever, headache, hematuria, palpitations, shortness of breath, vomiting. The symptoms are described as sharp. Modifying factors: The symptoms are alleviated by remaining still, the symptoms are aggravated by movement, touching the area. Severity of pain: At its worst the pain was moderate in the emergency department the pain is actually worse moderately. The patient has not experienced similar symptoms in the past. The patient has not recently seen a physician. states was on a recent trip where he drove to [facility], and then on to [facility]. was going to go to [place] but cut trip short due to his pain. denies fall or known injury. Historical: - Allergies: 10:59 No Known Allergies; jl7 - Home Meds: 11:05 losartan oral oral [Active]; Omeprazole Oral [Active]; Atenolol Oral [Active]; jl7 Simvastatin Oral [Active]; - PMHx: 10:59 Abdominal aneurysm; allergies; GERD; Hypertension; jl7 - PSHx: 10:59 tumor removed from abdomen; temporal biopsy; Hernia repair; right wrist fusion; jl7 - Immunization history:: Adult Immunizations up to date. - Social history:: Smoking status: Patient/guardian denies using tobacco. - Ebola Screening: : No symptoms or risks identified at this time. - Family history:: not pertinent. - Hospitalizations: : No recent hospitalization is reported. ROS: 11:23 Constitutional: Negative for fever, chills, and weight loss, Eyes: Negative for injury, wa pain, redness, and discharge, ENT: Negative for injury, pain, and discharge, Neck: Negative for injury, pain, and swelling, Cardiovascular: Negative for chest pain, palpitations, and edema, Respiratory: Negative for shortness of breath, cough, wheezing, and pleuritic chest pain, Back: Negative for injury and pain, : Negative for injury, bleeding, discharge, and swelling, MS/Extremity: Negative for injury and deformity, Skin: Negative for injury, rash, and discoloration, Neuro: Negative for headache, weakness, numbness, tingling, and seizure, Psych: Negative for depression, anxiety, suicide ideation, homicidal ideation, and hallucinations. 11:23 Respiratory: Negative for cough, dyspnea on exertion, shortness of breath. 11:23 Abdomen/GI: Positive for abdominal pain, of the right upper quadrant. 11:23 All other systems are negative. Exam: 11:24 Constitutional: This is a well developed, well nourished patient who is awake, alert, wa and in no acute distress. Head/Face: Normocephalic, atraumatic. Eyes: Pupils equal round and reactive to light, extra-ocular motions intact. Lids and lashes normal. Conjunctiva and sclera are non-icteric and not injected. Cornea within normal limits. Periorbital areas with no swelling, redness, or edema. ENT: Nares patent. No nasal discharge, no septal abnormalities noted. Tympanic membranes are normal and external auditory canals are clear. Oropharynx with no redness, swelling, or masses, exudates, or evidence of obstruction, uvula midline. Mucous membranes moist. Neck: Trachea midline, no thyromegaly or masses palpated, and no cervical lymphadenopathy. Supple, full range of motion without nuchal rigidity, or vertebral point tenderness. No Meningismus. Chest/axilla: Normal chest wall appearance and motion. Nontender with no deformity. No lesions are appreciated. Cardiovascular: Regular rate and rhythm with a normal S1 and S2. No gallops, murmurs, or rubs. Normal PMI, no JVD. No pulse deficits. Respiratory: Lungs have equal breath sounds bilaterally, clear to auscultation and percussion. No rales, rhonchi or wheezes noted. No increased work of breathing, no retractions or nasal flaring. Back: No spinal tenderness. No costovertebral tenderness. Full range of motion. Skin: Warm, dry with normal turgor. Normal color with no rashes, no lesions, and no evidence of cellulitis. MS/ Extremity: Pulses equal, no cyanosis. Neurovascular intact. Full, normal range of motion. Neuro: Awake and alert, GCS 15, oriented to person, place, time, and situation. Cranial nerves II-XII grossly intact. Motor strength 5/5 in all extremities. Sensory grossly intact. Cerebellar exam normal. Normal gait. Psych: Awake, alert, with orientation to person, place and time. Behavior, mood, and affect are within normal limits. 11:24 Abdomen/GI: Inspection: abdomen appears normal, Bowel sounds: normal, Palpation: severe abdominal tenderness, in the underneath R lower rib cage and over the 12 rib. reproducible. no redness or swelling. no crepitus. no rash in area . Vital Signs: 10:59 BP 133 / 70; Pulse 71; Resp 16 S; Temp 97.9(O); Pulse Ox 97% on R/A; Pain 4/10; jl7 11:55 BP 124 / 67; Pulse 67; Resp 17; Pulse Ox 97% on R/A; tw2 13:21 BP 151 / 78; Pulse 61; Resp 17; Pulse Ox 98% on R/A; tw2 MDM: 11:04 Patient medically screened. wa 11:25 Differential diagnosis: noted very tender over the R lower rib cage area. tenderness wa reproducible. denies any known trauma. will work up to exclude acute event. 13:25 Data reviewed: vital signs, nurses notes, lab test result(s), radiologic studies. Test wa interpretation: by ED physician or midlevel provider: labs noted wnl. CT chest/abd/pelvis: no acute findings to explain pain. suspect musculoskeletal origin. will treat as such and advise close f/u. pt improved with tylenol and toradol in ED. Response to treatment: the patient's symptoms have markedly improved after treatment. 13:35 Special discussion: upon further discussion, pt remembers loading his vehicle with wa heavy suit cases prior to his trip. pain did not set in until 2 days later however. again, suspect musculoskeletal origin. worse with minimal movement. completely reproducible. work up obtained due to age and commodities however turned up wnl.. 01/25 11:18 Order name: Basic Metabolic Panel; Complete Time: 12:22 wa 01/25 11:18 Order name: CBC with Diff; Complete Time: 12:18 ca 01/25 11:18 Order name: Hepatic Function; Complete Time: 12:22 ca 01/25 11:18 Order name: Lipase; Complete Time: 12: ca 01/25 11:18 Order name: Chest Pa And Lat (2 Views) XRAY ca 01/25 11:20 Order name: CT Chest, Abdomen, Pelvis - W/Contrast; Complete Time: 13:20 ca 01/25 11:18 Order name: IV Saline Lock; Complete Time: 11:52 ca 01/25 11:18 Order name: Labs collected and sent; Complete Time: 11:52 ca Administered Medications: 11:52 Drug: TORadol 30 mg Route: IVP; Site: left wrist; tw2 13:25 Follow up: Response: No adverse reaction; Pain is decreased tw2 11:54 Drug: Tylenol 1000 mg Route: PO; tw2 13:25 Follow up: Response: No adverse reaction tw2 Disposition: 01/25/19 13:29 Discharged to Home. Impression: Acute Right Upper Quadrant Pain, Right Chest Wall Pain. - Condition is Stable. - Discharge Instructions: Chest Wall Pain, [id number]. - Prescriptions for Tylenol Extra Strength 500 mg Oral tablet - take 2 tablet by ORAL route every 8 hours As needed as needed; 30 tablet. Motrin IB 200 mg Oral Tablet - take 2 tablet by ORAL route every 8 hours As needed as needed with food; 30 tablet. - Medication Reconciliation Form, Thank You Letter, Antibiotic Education, Prescription Opioid Use form. - Follow up: Private Physician; When: 2 - 3 days; Reason: Re-evaluation by your physician. - Problem is new. - Symptoms have improved. - Notes: take 2 motrin and 2 extra-strength tylenol morning and evening, with food, for 2 days then every 8 hours as needed if still inpain. see your doctor within 3-4 days if your pain does not improve. you may return here immediately if your pain drastically worsen. Signatures: Dispatcher [employer] Terrie Pagan RN RN tw2 Cass Stallworth RN RN jl7 Nikunj Delgadillo MD MD ca Corrections: (The following items were deleted from the chart) 13:47 13:29 01/25/2019 13:29 Discharged to Home. Impression: Acute Right Upper Quadrant Pain; tw2 Right Chest Wall Pain. Condition is Stable. Forms are Medication Reconciliation Form, Thank You Letter, Antibiotic Education, Prescription Opioid Use. Follow up: Private Physician; When: 2 - 3 days; Reason: Re-evaluation by your physician. Problem is new. Symptoms have improved. wa
--- NOTE | 2019-01-25 13:29 | ER ---
Nurse's Notes [facility] Name: Anival Lackey Age: 83 yrs Sex: Male : 1935 Arrival Date: 01/25/2019 Time: 10:54 Bed 16 Private MD: Dustin Anthony Diagnosis: Acute Right Upper Quadrant Pain;Right Chest Wall Pain Presentation: 01/25 10:57 Presenting complaint: Patient states: Intermittent RUQ sharp pain since , jl7 denies N/V/D. Transition of care: patient was not received from another setting of care. Onset of symptoms was January 21, 2019. Risk Assessment: Do you want to hurt yourself or someone else? Patient reports no desire to harm self or others. Initial Sepsis Screen: Does the patient meet any 2 criteria? No. Patient's initial sepsis screen is negative. Does the patient have a suspected source of infection? No. Patient's initial sepsis screen is negative. Care prior to arrival: None. 10:57 Method Of Arrival: Ambulatory jl7 10:57 Acuity: DANIEL 3 jl7 Historical: - Allergies: 10:59 No Known Allergies; jl7 - Home Meds: 11:05 losartan oral oral [Active]; Omeprazole Oral [Active]; Atenolol Oral [Active]; jl7 Simvastatin Oral [Active]; - PMHx: 10:59 Abdominal aneurysm; allergies; GERD; Hypertension; jl7 - PSHx: 10:59 tumor removed from abdomen; temporal biopsy; Hernia repair; right wrist fusion; jl7 - Immunization history:: Adult Immunizations up to date. - Social history:: Smoking status: Patient/guardian denies using tobacco. - Ebola Screening: : No symptoms or risks identified at this time. - Family history:: not pertinent. - Hospitalizations: : No recent hospitalization is reported. Screenin:03 Abuse screen: Denies threats or abuse. Nutritional screening: No deficits noted. tw2 Tuberculosis screening: No symptoms or risk factors identified. Fall Risk Secondary diagnosis (15 points) impaired mobility. Assessment: 11:01 General: Appears in no apparent distress. well groomed, Behavior is calm, cooperative, tw2 agitated. Pain: Complains of pain in abdomen and right upper quadrant. Neuro: Level of Consciousness is awake, alert, obeys commands, Oriented to person, place, time, situation. Cardiovascular: Heart tones S1 S2 Patient's skin is warm and dry. Respiratory: Airway is patent Respiratory effort is even, unlabored, Respiratory pattern is regular, symmetrical, Breath sounds are clear bilaterally. GI: Abdomen is flat, Bowel sounds present X 4 quads. Abd is soft X 4 quads Reports lower abdominal pain, upper abdominal pain. : No signs and/or symptoms were reported regarding the genitourinary system. EENT: No signs and/or symptoms were reported regarding the EENT system. Derm: No signs and/or symptoms reported regarding the dermatologic system. Musculoskeletal: Range of motion: intact in all extremities. 11:12 Reassessment: provider at bedside at this time. tw2 13:21 Reassessment: Patient appears in no apparent distress at this time. No changes from tw2 previously documented assessment. Patient and/or family updated on plan of care and expected duration. Pain level reassessed. Patient is alert, oriented x 3, equal unlabored respirations, skin warm/dry/pink. 13:23 Reassessment: provider at bedside at this time. tw2 13:47 Reassessment: Patient appears in no apparent distress at this time. No changes from tw2 previously documented assessment. Patient and/or family updated on plan of care and expected duration. Pain level reassessed. Patient is alert, oriented x 3, equal unlabored respirations, skin warm/dry/pink. Vital Signs: 10:59 BP 133 / 70; Pulse 71; Resp 16 S; Temp 97.9(O); Pulse Ox 97% on R/A; Pain 4/10; jl7 11:55 BP 124 / 67; Pulse 67; Resp 17; Pulse Ox 97% on R/A; tw2 13:21 BP 151 / 78; Pulse 61; Resp 17; Pulse Ox 98% on R/A; tw2 ED Course: 10:54 Patient arrived in ED. mr 10:54 Dustin Anthony DO is Private Physician. mr 10:59 Triage completed. jl7 10:59 Arm band placed on right wrist. jl7 11:03 Terrie Deleon, SUGEY is Primary Nurse. tw2 11:04 Nikunj Delgadillo MD is Attending Physician. wa 11:04 Bed in low position. Call light in reach. chicken vaccinator on. Pulse ox on. NIBP on. tw2 11:39 Chest Pa And Lat (2 Views) XRAY In Process Unspecified. EDMS 11:48 Initial lab(s) drawn, by me, sent to lab. Inserted saline lock: 20 gauge in left dh3 forearm, using aseptic technique. Blood collected. 12:47 CT Chest, Abdomen, Pelvis - W/Contrast In Process Unspecified. EDMS 13:46 No provider procedures requiring assistance completed. IV discontinued, intact, tw2 bleeding controlled, No redness/swelling at site. Pressure dressing applied. Administered Medications: 11:52 Drug: TORadol 30 mg Route: IVP; Site: left wrist; tw2 13:25 Follow up: Response: No adverse reaction; Pain is decreased tw2 11:54 Drug: Tylenol 1000 mg Route: PO; tw2 13:25 Follow up: Response: No adverse reaction tw2 Outcome: 13:29 Discharge ordered by . wa 13:46 Discharged to home ambulatory. tw2 13:46 Condition: stable 13:46 Discharge instructions given to patient, Instructed on discharge instructions, follow up and referral plans. medication usage, Demonstrated understanding of instructions, follow-up care, medications, Prescriptions given X 2. 13:47 Patient left the ED. tw2 Signatures: Dispatcher [employer] EDTX Pinky Ingram mr Terrie Deleon RN RN tw2 Cass Stallworth RN RN jl7 [place] [id number] Nikunj Delgadillo MD MD wa
[2019-01-25 13:52] VITALS: TEMP 97.9
[2019-01-25 13:54] VITALS: BP 151/78; O2SAT 98
--- NOTE | 2019-01-25 14:41 | RAD REPORT ---
EXAM DESCRIPTION: Azra Mims (2 Views)01/25/2019 11:40 am CLINICAL HISTORY: Chest pain COMPARISON: February 2015 FINDINGS: The lungs appear clear of acute infiltrate. The heart is normal size Metallic fragments overlie the upper right hemithorax IMPRESSION: No acute abnormalities displayed
== END 2019-01-25 13:47 | disposition home or self-care (01) ==
LOC: ER 10:51
DX: R07.89 Other chest pain (principal); I10 Essential (primary) hypertension; K21.9 Gastro-esophageal reflux disease without esophagitis
CPT/HCPCS: 85025; 80048; 36415; 80076; 83690; 71260; 74177; 71046; 96374; 99284; Q9967

== ENCOUNTER 2020-09-08 03:29 | Emergency (ER) | payer OTHER ==
--- OUTSIDE RECORDS SUMMARY | 2020-09-08 03:32 | XMS REPORT | Continuity of Care Document ---
:1935 Author Organization [facility] t Address [address] [place] [address] Care Team Providers Name Role Phone Unavailable Unavailable Unavailable Problems Condition Condition Condition Status Onset Resolution Last Treating Co mments Source Name Details Category Date Date Treatment Clinician Date Reid Reid Problem Active [facility] esophagus esophagus [facility] GERD GERD Problem Active [facility] (gastroeso (gastroeso Usha kes - phageal phageal Memoria reflux reflux l disease) disease) Outpat i ent Clinics Insomnia Insomnia Diagnosis [facility] Osteoarthr Osteoarthr Problem Active [facility] itis of itis of [facility] - multiple multiple Memori a joints joints l Outpati ent Clinics Diverticul Diverticul Problem Active [facility] osis large osis large Usha kes - intestine intestine Bunny clau w/o w/o l perforatio perforatio Ou tpati n or n or ent abscess abscess Clinics w/o w/o bleeding bleeding Chronic Chronic Problem Active [facility] tension-ty tension-ty Usha kes - pe pe Memoria headache, headache, l not not Outpati intractabl intractabl en t e e Clinics Osteopenia Osteopenia Diagnosis Active [facility] of neck of of neck of Usha kes - left femur left femur Me moria l Outpati ent Clinics Hypertensi Hypertensi Diagnosis Active [facility] 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 Me moria l Outpati ent Clinics Cholelithi Cholelithi Problem Active [facility] asis and asis and [facility] - acute acute Memoria cholecysti cholecysti l tis tis Outpati without without ent obstructio obstructio Cl inics n n Allergic Allergic Problem [facility] rhinitis, rhinitis, Luke [facility] - seasonal seasonal Memori a l Outpati ent Clinics Hyperlipid Hyperlipid Problem Active [facility] emia, emia, [facility] - mixed mixed Memoria l [facility] ent [facility] 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[facility] - herniation herniation Me moria l [facility] ent Clinics Abdominal Abdominal Problem Active [facility] aortic aortic [facility] - aneurysm aneurysm Memori a l [facility] ent [facility] Degenerati Degenerati Problem Active [facility] on of on of [facility] - lumbar or lumbar or Bunny clau lumbosacra lumbosacra l l l [facility] interverte interverte en t bral disc bral disc Clin ics Chronic Chronic Diagnosis [facility] sinusitis, sinusitis, Usha kes - unspecifie unspecifie Me moria d location d location l [facility] ent [facility] Chronic Chronic Diagnosis Active [facility] daily daily [facility] - headache headache Memori a l [facility] ent [facility] Allergies, Adverse Reactions, Alerts This patient has no known allergies or adverse reactions. Medications Ordered Filled Start Stop Current Ordering Indication Dosage Frequency Signature Comments Components Source Medication Medication Date Date Medication? Clinician (SIG) Name Name Montelukast Montelukast Yes Dustin [address] [facility] Sodium Sodium 4-19 Anthony in the [facility] - 00:00: evening Memoria 00 l [facility] ent Clinics Flonase Flonase Yes Dustin [address] [facility] each [facility] - nostril Memoria l [facility] ent [facility] Aspir-81 Aspir-81 Yes Dustin [address] [facility] - Memoria l [facility] ent [facility] Losartan Losartan Yes Dustin [address] Potassium Potassium Anthony Luke s - Memoria l [facility] ent Clinics Ambien Ambien Yes Dustin 1 tablet [facility] at bedtime [facility] - as needed Memoria l [facility] ent Clinics Atenolol Atenolol Yes Dustin [address] [facility] ent Clinics Omeprazole Omeprazole Yes Dustin [address] [facility] ent Clinics Caltrate Caltrate Yes Dustin [address] 600+D 600+D Anthony with a [facility] - meal Memoria l [facility] ent [facility] Lunesta Lunesta Yes Dustin [address] [facility] immediatel [facility] - y before Memoria bedtime l [facility] ent Clinics Procedures This patient has no known procedures. Encounters Start End Encounter Admission Attending Care Care Encounter Source Date/Time Date/Time Type Type Clinicians Facility Department ID 2018-04-08 2018-04-08 [facility] [id number] [facility] 08:45[facility]00 08:45:00 [employer] [facility] Outpati ent Clinics 2018-01-06 2018-01-06 [facility] [id number] [facility] 16:27:00 16:27:00 t [employer] [facility] Outpati ent Clinics 2018-01-05 2018-01-05 [facility] [id number] [facility] 11:00:00 11:00:00 [employer] [facility] Outpati ent Clinics 2017-09-18 2017-09-18 [facility] [id number] [facility] 08:45:00 08:45:00 [employer] [facility] Medicine Outpati ent Clinics 2017-07-24 2017-07-24 [facility] [id number] [address] 14:00:00 14:00:00 [employer] [facility] Outpati ent Clinics Results This patient has no known results.
[2020-09-08 04:33] LABS: Urine Blood 3+ (Negative); Urine Glucose Negative (Negative); Urine Protein 2+ (Negative)
[2020-09-08] MEDS ORDERED: ONDANSETRON 4 MG/2 ML VIAL ONE (04:56)
[2020-09-08] MEDS ORDERED: MORPHINE 2 MG/ML SYR ONE (04:56)
[2020-09-08 05:03] LABS: Absolute Lymphocytes (CBC) 1.6 K/uL (0.7-4.9); Basophils % 0.4 % (0-1.3); Hematocrit 44.5 % (39.6-49.0); MPV 7.9 fL (7.6-11.3); RBC Red Blood Cell Count 4.88 M/uL (4.33-5.43)
[2020-09-08] MEDS ORDERED: NA CHLORIDE 0.9% 1,000 ML ONE (05:06)
[2020-09-08 05:22] LABS: Albumin 3.9 g/dL (3.4-5.0); Bilirubin Direct 0.2 mg/dL (0-0.2); Bilirubin Total 0.4 mg/dL (0.2-1.0); Potassium 3.5 mmol/L (3.5-5.1); Protein, Total 8.3 g/dL (6.4-8.2)
--- NOTE | 2020-09-08 06:31 | EDPHYS ---
Physician Documentation [facility] Name: Anival Lackey Age: 85 yrs Sex: Male : 1935 Arrival Date: 09/08/2020 Time: 03:33 Bed 28 Private MD: ED Physician Tushar Sofia HPI: 09/08 04:36 This 85 yrs old Male presents to ER via Ambulatory with complaints of Flank pkl Pain. 04:36 The patient complains of pain in the left flank. The pain radiates to the left lower pkl quadrant. Onset: The symptoms/episode began/occurred just prior to arrival, 1 hour(s) ago. The patient has experienced similar episodes in the past, a few times. H/O kidney stones and abdominal aneurysm. Historical: - Allergies: 04:17 No Known Allergies; iw - PMHx: 04:17 Abdominal aneurysm; allergies; GERD; Hypertension; iw - PSHx: 04:17 tumor removed from abdomen; temporal biopsy; Hernia repair; right wrist fusion; iw - Immunization history:: Adult Immunizations Client reports receiving the 2nd dose of the Covid vaccine. - Social history:: Smoking status: Patient denies any tobacco usage or history of. ROS: 04:36 Eyes: Negative for injury, pain, redness, and discharge, ENT: Negative for injury, pkl pain, and discharge, Neck: Negative for injury, pain, and swelling, Cardiovascular: Negative for chest pain, palpitations, and edema, Respiratory: Negative for shortness of breath, cough, wheezing, and pleuritic chest pain. 04:36 Abdomen/GI: Positive for abdominal pain, of the left lower quadrant. 04:36 Back: Positive for pain at rest, of the left flank. 04:36 : Negative for urinary symptoms. 04:36 MS/extremity: Negative for acute changes. 04:36 Skin: Negative for rash. 04:36 Neuro: Negative for altered mental status, loss of consciousness. Exam: 04:39 Head/Face: Normocephalic, atraumatic. Eyes: Pupils equal round and reactive to light, pkl extra-ocular motions intact. Lids and lashes normal. Conjunctiva and sclera are non-icteric and not injected. Cornea within normal limits. Periorbital areas with no swelling, redness, or edema. ENT: Nares patent. No nasal discharge, no septal abnormalities noted. Tympanic membranes are normal and external auditory canals are clear. Oropharynx with no redness, swelling, or masses, exudates, or evidence of obstruction, uvula midline. Mucous membranes moist. Neck: Trachea midline, no thyromegaly or masses palpated, and no cervical lymphadenopathy. Supple, full range of motion without nuchal rigidity, or vertebral point tenderness. No Meningismus. Chest/axilla: Normal chest wall appearance and motion. Nontender with no deformity. No lesions are appreciated. Cardiovascular: Regular rate and rhythm with a normal S1 and S2. No gallops, murmurs, or rubs. Normal PMI, no JVD. No pulse deficits. Respiratory: Lungs have equal breath sounds bilaterally, clear to auscultation and percussion. No rales, rhonchi or wheezes noted. No increased work of breathing, no retractions or nasal flaring. Abdomen/GI: Soft, non-tender, with normal bowel sounds. No distension or tympany. No guarding or rebound. No evidence of tenderness throughout. Back: No spinal tenderness. No costovertebral tenderness. Full range of motion. Skin: Warm, dry with normal turgor. Normal color with no rashes, no lesions, and no evidence of cellulitis. MS/ Extremity: Pulses equal, no cyanosis. Neurovascular intact. Full, normal range of motion. Neuro: Awake and alert, GCS 15, oriented to person, place, time, and situation. Cranial nerves II-XII grossly intact. Motor strength 5/5 in all extremities. Sensory grossly intact. Cerebellar exam normal. Normal gait. Vital Signs: 04:15 BP 191 / 87; Pulse 65; Resp 16; Temp 97.0; Pulse Ox 99% on R/A; Weight 72.57 kg; Height iw 5 ft. 11 in. (180.34 cm); Pain 8/10; 04:48 BP 189 / 82; Pulse 71; Resp 16; Pulse Ox 96% on R/A; iw 06:55 BP 185 / 85; Pulse 75; Resp 19; Pulse Ox 98% ; rr5 04:15 Body Mass Index 22.31 (72.57 kg, 180.34 cm) iw MDM: 04:23 Patient medically screened. pkl 06:19 Data reviewed: vital signs, nurses notes, lab test result(s), radiologic studies, CT pkl scan. 09/08 04:24 Order name: Basic Metabolic Panel; Complete Time: 05:39 iw 09/08 04:24 Order name: CBC with Diff; Complete Time: 05:22 iw 09/08 04:24 Order name: Hepatic Function; Complete Time: 05:39 iw 09/08 04:24 Order name: Lipase; Complete Time: 05:39 iw 09/08 04:32 Order name: Urine Dipstick-Ancillary; Complete Time: 04:35 EDMS 09/08 06:38 Order name: CREATININE WHOLE BLOOD EDMS 09/08 04:24 Order name: IV Saline Lock; Complete Time: 04:32 iw 09/08 04:24 Order name: Labs collected and sent; Complete Time: 04:32 iw 09/08 04:32 Order name: CT Abd/Pelvis - IV Contrast Only pkl 09/08 04:24 Order name: Urine Dipstick-Ancillary (obtain specimen); Complete Time: 04:31 iw Administered Medications: 04:43 Drug: morphine 2 mg Route: IVP; Site: right antecubital; iw 05:30 Follow up: Response: No adverse reaction; RASS: Alert and Calm (0) rr5 04:43 Drug: Zofran (Ondansetron) 4 mg Route: IVP; Site: right antecubital; iw 05:40 Follow up: Response: No adverse reaction rr5 04:48 Drug: NS 0.9% 1000 ml Route: IV; Rate: 125 ml/hr; Site: right antecubital; iw 06:57 Follow up: Response: No adverse reaction; IV Status: Order to discontinue infusion; IV rr5 Intake: 125ml 06:43 Drug: morphine 4 mg {Note: rass 0.} Route: IVP; Site: right forearm; rr5 06:57 Follow up: Response: No adverse reaction; RASS: Alert and Calm (0) rr5 Disposition: 09/08/20 06:31 Discharged to Home. Impression: 4 mm proximal left ureteric stone with hydronephrosis. Cholelithiasis. Stable aortic aneurysm. - Condition is Stable. - Prescriptions for Ultram 50 mg Oral Tablet - take 1 tablet by ORAL route every 8 hours As needed; 15 tablet. Flomax 0.4 mg Oral Capsule, Sust. Release 24 hr - take 1 capsule by ORAL route once daily 1/2 hour following the same meal each day; 15 capsule. - Medication Reconciliation Form, Thank You Letter, Antibiotic Education, Prescription Opioid Use form. - Follow up: Private Physician; When: 2 - 3 days; Reason: Re-evaluation by your physician. - Problem is new. - Symptoms have improved. Signatures: Dispatcher [employer] [facility] Tushar Sofia MD MD pkl Teressa Mariscal, RN RN iw Anjum Hill RN RN rr5 Corrections: (The following items were deleted from the chart) 04:33 04:22 Stone Protocol+CT.RAD.BRZ ordered. [facility] EDMS 06:57 06:31 09/08/2020 06:31 Discharged to Home. Impression: 4 mm proximal left ureteric rr5 stone with hydronephrosis. Cholelithiasis. Stable aortic aneurysm. Condition is Stable. Forms are Medication Reconciliation Form, Thank You Letter, Antibiotic Education, Prescription Opioid Use. Follow up: Private Physician; When: 2 - 3 days; Reason: Re-evaluation by your physician. Problem is new. Symptoms have improved. pkl
--- NOTE | 2020-09-08 06:31 | ER ---
Nurse's Notes [facility] Name: Anival Lackey Age: 85 yrs Sex: Male : 1935 Arrival Date: 09/08/2020 Time: 03:33 Bed 28 Private MD: Diagnosis: 4 mm proximal left ureteric stone with hydronephrosis. Cholelithiasis. Stable aortic aneurysm Presentation: 09/08 04:15 Chief complaint: Patient states: thinks he has a kidney stone, has left flank pain iw since 0300. Coronavirus screen: At this time, the client does not indicate any symptoms associated with coronavirus-19. Ebola Screen: Patient negative for fever greater than or equal to 101.5 degrees Fahrenheit, and additional compatible Ebola Virus Disease symptoms Patient denies exposure to infectious person. Patient denies travel to an Ebola-affected area in the 21 days before illness onset. No symptoms or risks identified at this time. Initial Sepsis Screen: Does the patient meet any 2 criteria? No. Patient's initial sepsis screen is negative. Does the patient have a suspected source of infection? No. Patient's initial sepsis screen is negative. Risk Assessment: Do you want to hurt yourself or someone else? Patient reports no desire to harm self or others. Onset of symptoms was September 08, 2020. 04:15 Method Of Arrival: Ambulatory iw 04:15 Acuity: DANIEL 3 iw Historical: - Allergies: 04:17 No Known Allergies; iw - PMHx: 04:17 Abdominal aneurysm; allergies; GERD; Hypertension; iw - PSHx: 04:17 tumor removed from abdomen; temporal biopsy; Hernia repair; right wrist fusion; iw - Immunization history:: Adult Immunizations Client reports receiving the 2nd dose of the Covid vaccine. - Social history:: Smoking status: Patient denies any tobacco usage or history of. Screenin:18 Abuse screen: Denies threats or abuse. Denies injuries from another. Nutritional iw screening: No deficits noted. Tuberculosis screening: No symptoms or risk factors identified. Fall Risk None identified. Assessment: 04:17 General: Appears uncomfortable, Behavior is calm, cooperative. Pain: Complains of pain iw in posterior aspect of left lateral abdomen and left lower quadrant. Neuro: No deficits noted. Level of Consciousness is awake, alert, obeys commands, Oriented to person, place, time, situation, Moves all extremities. Full function. Cardiovascular: Patient's skin is warm and dry. Respiratory: Airway is patent Respiratory effort is even, unlabored. : Reports pain in left flank(s). Derm: Skin is intact, is healthy with good turgor. Musculoskeletal: Range of motion: intact in all extremities. 04:49 Reassessment: Patient appears in no apparent distress at this time. Patient and/or iw family updated on plan of care and expected duration. Pain level reassessed. Patient is alert, oriented x 3, equal unlabored respirations, skin warm/dry/pink. 05:20 Reassessment: Patient appears in no apparent distress at this time. No changes from rr5 previously documented assessment. 06:54 Reassessment: Patient appears in no apparent distress at this time. discharge rr5 instruction given and explained without complaints made Patient states symptoms have improved. Vital Signs: 04:15 BP 191 / 87; Pulse 65; Resp 16; Temp 97.0; Pulse Ox 99% on R/A; Weight 72.57 kg; Height iw 5 ft. 11 in. (180.34 cm); Pain 8/10; 04:48 BP 189 / 82; Pulse 71; Resp 16; Pulse Ox 96% on R/A; iw 06:55 BP 185 / 85; Pulse 75; Resp 19; Pulse Ox 98% ; rr5 04:15 Body Mass Index 22.31 (72.57 kg, 180.34 cm) iw ED Course: 03:33 Patient arrived in ED. es 04:16 Triage completed. iw 04:17 Arm band placed on. iw 04:18 Teressa Mariscal, RN is Primary Nurse. iw 04:20 Patient has correct armband on for positive identification. Bed in low position. Call rr5 light in reach. manager treasury on. Pulse ox on. NIBP on. 04:20 No provider procedures requiring assistance completed. rr5 04:23 Tushar Sofia MD is Attending Physician. pkl 04:40 Inserted saline lock: 20 gauge in right forearm, using aseptic technique. Blood rr5 collected. 05:28 CT Abd/Pelvis - IV Contrast Only In Process Unspecified. EDMS 06:56 IV discontinued, intact, bleeding controlled, No redness/swelling at site. Pressure rr5 dressing applied. Administered Medications: 04:43 Drug: morphine 2 mg Route: IVP; Site: right antecubital; iw 05:30 Follow up: Response: No adverse reaction; RASS: Alert and Calm (0) rr5 04:43 Drug: Zofran (Ondansetron) 4 mg Route: IVP; Site: right antecubital; iw 05:40 Follow up: Response: No adverse reaction rr5 04:48 Drug: NS 0.9% 1000 ml Route: IV; Rate: 125 ml/hr; Site: right antecubital; iw 06:57 Follow up: Response: No adverse reaction; IV Status: Order to discontinue infusion; IV rr5 Intake: 125ml 06:43 Drug: morphine 4 mg {Note: rass 0.} Route: IVP; Site: right forearm; rr5 06:57 Follow up: Response: No adverse reaction; RASS: Alert and Calm (0) rr5 Intake: 06:57 IV: 125ml; Total: 125ml. rr5 Outcome: 06:31 Discharge ordered by . pktc 06:56 Discharged to home via wheelchair, with family. rr5 06:56 Discharge instructions given to patient, Instructed on discharge instructions, Demonstrated understanding of instructions, follow-up care, medications, Prescriptions given X 2. 06:57 Condition: stable rr5 06:57 Patient left the ED. rr5 Signatures: Dispatcher [employer] Tushar Sims MD MD pkTalia Cm Irene, RN RN iw Anjum Hill RN RN rr5 Corrections: (The following items were deleted from the chart) 06:57 04:40 Discharged to home via wheelchair, with family, rr5 rr5 06:57 04:40 Condition: stable rr5 rr5 06:57 04:40 Discharge instructions given to patient, Instructed on discharge instructions, rr5 Demonstrated understanding of instructions, follow-up care, medications, Prescriptions given X 2, rr5
[2020-09-08] MEDS ORDERED: MORPHINE 4 MG/ML SYR ONE (07:00)
[2020-09-08 07:05] VITALS: TEMP 97
[2020-09-08 07:08] VITALS: BP 185/85; O2SAT 98
--- NOTE | 2020-09-08 14:34 | RAD REPORT ---
EXAM DESCRIPTION: CT - Abdomen Pelvis W Contrast - 09/08/2020 6:33 am CLINICAL HISTORY: The patient is 85 years old and is Male; left flank pain TECHNIQUE: Axial computed tomography images of the abdomen and pelvis with intravenous contrast. S agittal and coronal reformatted images were created and reviewed. This CT exam was performed using one or more of the following dose reduction techniques: automated exposure control, adjustment of t he mA and/or kV according to patient size, and/or use of iterative reconstruction technique. COMPARISON: CT chest abdomen and pelvis 01/25/2019. FINDINGS: Lung bases: Unremarkable. No mass. No consolidation. ABDOMEN: Liver: Unremarkable. No mass. Gallbladder and bile ducts: Cholelithiasis. No ductal dilation. Pancreas: Unremarkable. No mass. No ductal dilation. Spleen: Unremarkable. No splenomegaly. Adrenals: Unremarkable. No mass. Kidneys and ureters: 4 mm stone in the proximal left ureter. [id number] left hydronephrosis and perinephric stranding. Redemonstration of multiple simple cysts in the kidneys bilaterally measuring up to 5 cm in t he left kidney. ACR White Paper guidelines (Hercharles, et al. JACR 2018; 15(2):264-273) suggest no follow -up is necessary. Prior Bilateral renal scarring. Stomach and bowel: Colonic diverticulosis. No obstruction. No mucosal thickening. PELVIS: Appendix: No findings to suggest acute appendicitis. Bladder: Unremarkable. No mass. Reproductive: Unremarkable as visualized. ABDOMEN and PELVIS: Intraperitoneal space: Unremarkable. No free air. No significant fluid collection. Bones/joints: Multilevel disc space narrowing with degenerative endplate changes in the spine. No acute fracture. No dislocation. Soft tissues: Unremarkable. Vasculature: Scattered atherosclerotic vascular calcifications including at the origins of the me senteric and renal arteries. Stable abdominal aortic aneurysm just above the iliac bifurcation which measures up to 3.9 cm in diameter. Lymph nodes: Unremarkable. No enlarged lymph nodes. IMPRESSION: 1. Cholelithiasis. 2. 4 mm stone in the proximal left ureter. [id number] left hydronephrosis and perinephric str anding. Electronically signed by: Dillon Ness MD 09/08/2020 6:00 AM CDT Due to temporary technical issues with the PACS/Fluency reporting system, reports are being signed by the in house radiologists without review as a courtesy to insure prompt reporting. The interpreting radiologist is fully responsible for the content of the report.
== END 2020-09-08 06:57 | disposition home or self-care (01) ==
LOC: ER 03:29
DX: N13.2 Hydronephrosis with renal and ureteral calculous obstruction (principal); K80.20 Calculus of gallbladder without cholecystitis without obstruction; I71.4 Abdominal aortic aneurysm, without rupture; K21.9 Gastro-esophageal reflux disease without esophagitis; I10 Essential (primary) hypertension
CPT/HCPCS: 85025; 80048; 36415; 82565; 80076; 81003; 83690; 74177; 99284; Q9967; J2270; J7030; J2405